=== PATIENT | female | born 1945 | race Caucasian/White ===

== ENCOUNTER 2017-05-20 09:16 | Day surgery (SDC) | payer MEDICARE ==
[~2017-05-20] VITALS: Ht 157.5 cm; Wt 65.9 kg
[~2017-05-20 09:16] MED LIST: CITA10TA4 PO; DICL50 PO; EZET10 PO; HYDR-3533 PO; LOVA10TA PO
[2017-05-20 09:32] VITALS: BP 125/83; PULSE 98; RESP 20; TEMP 97.9; O2SAT 95
[2017-05-20] MEDS ORDERED: LEVO50TA4 PO (09:38)
[2017-05-20] MEDS ORDERED: EZET1TAB8 PO (09:38)
[2017-05-20] MEDS ORDERED: CITA10TA4 PO (09:38)
[2017-05-20] MEDS ORDERED: AZEL0.055 EACH NARE (09:38)
[2017-05-20] MEDS ORDERED: LIDOCAINE 1%/EPINEPHrine 1:100,000 SOLN 20 ML VIAL ONE (09:45)
[2017-05-20] MEDS ORDERED: SODIUM CHLOR 0.9% 1000 ML IV SCH (10:30)
[2017-05-20] MEDS ORDERED: MIDAZOLAM HCL 2 MG/2 ML VIAL ONE (10:54)
--- NOTE | 2017-05-20 11:31 | PD.RAD ---
Post CT Procedure Prog Note Pre Procedure Diagnosis: (1) Abdominal mass Post Procedure Diagnosis: (1) Abdominal mass Procedure Date: May 20, 2017 Supervising Radiologist: Marco Rincon Anesthesia: Conscious Sedation Plan of Activity Patient to Unit: [facility] Patient Condition: Good See PACS Report for procedural detail/treatment Marco Rincon MD May 20, 2017 11:31
[2017-05-20 11:40] VITALS: BP 112/74; PULSE 78; RESP 18; TEMP 97.8; O2SAT 92
[2017-05-20 11:55] VITALS: BP 116/75; PULSE 81; RESP 18; O2SAT 92
[2017-05-20 12:25] VITALS: BP 110/78; PULSE 80; RESP 18; O2SAT 92
[2017-05-20 12:55] VITALS: BP 109/75; PULSE 87; RESP 18; O2SAT 93
[2017-05-20 13:19] VITALS: BP 113/71; PULSE 84; RESP 18; O2SAT 92
--- NOTE | 2017-05-20 14:39 | RADRPT ---
EXAM DATE/TIME: 05/20/2017 10:57 [facility] COMPARISON: No previous studies available for comparison. 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 Image data biopsy has been requested. An omental implant in the right anterior midabdomen will be targeted. SEDATION TIME: 30 minutes BIOPSY SITE: Left abdomen MEDICATION(S): 1.) 2 mg midazolam (Versed) IV 2.) 100 mcg fentanyl (Sublimaze) IV DEVICE(S): 1.) 18 gauge Bain blunt needle 5cm 2.) 20 gauge Temno core biopsy needle 11cm MEDICAL HISTORY : Carcinoma, breast. pelvic mass SURGICAL HISTORY : mastectomy ENCOUNTER: Initial ACUITY: 1 day PAIN SCORE: 0/10 LOCATION: Left lateral A total of four core specimen(s) were obtained and sent to the laboratory for pathologic evaluation. PROCEDURE: 1. CT guided abdomen biopsy. 2. Conscious sedation with continuous EKG and oximetry monitoring. Prior to the procedure informed consent was obtained. Any appropriate prior imaging studies were rev iewed. Using automated exposure control and adjustment of the mA and/or kV according to patient size, radiat ion dose was kept as low as reasonably achievable to obtain optimal diagnostic quality images. DICOM format image data is available electronically for review and comparison. The site was prepped in a sterile fashion. Full sterile technique was used, including cap, mask, roger rile gloves and gown and a large sterile sheet. Hand hygiene and 2% chlorhexidine and/or betadine/al cohol prep was utilized per protocol for cutaneous antisepsis. The skin and subcutaneous tissues wer e infiltrated with local anesthetic solution. CT examination was performed through the abdomen. This demonstrates interval development of small to moderate amount of ascites. The previous subcentimeter omental implant is now nearly completely obscu red and is adjacent to a loop of bowel precluding biopsy. Therefore, 2 small subcentimeter omental ma sses were targeted in the left abdomen. 18 gauge Bain needle was advanced into the periphery of th e omental masses under careful CT guidance utilizing the blunt stylet. 20 gauge core biopsies were th en performed with a total of 5 biopsy attempts. The omental masses are difficult to target secondary to significant mobility and lack of fixation in the omental adipose tissue. Approximately 15 cc of s traw-colored ascites fluid was also withdrawn through the second needle as it was retracted through t he tract. All samples were submitted for cytology and pathology. Adequate hemostasis was obtained wit h compression at the puncture site. Follow-up CT scan reveals no hemorrhage. The patient tolerated the procedure well and there were no complications. The patient was returned to the Radiology Outpatient Unit in stable condition. CONCLUSION: 1. Interval development of [id number] amount of ascites. 2. Challenging omental mass biopsy and limited paracentesis through the biopsy needle tract, as above . Marco Rincon MD on May 20, 2017 at 14:32 Board Certified Radiologist. This report was verified electronically.
== END 2017-05-20 13:30 | disposition home or self-care (01) ==
LOC: HRAD 09:16 → HRIP 09:17 → HRAD 13:30
PROVIDERS: ATTEND Obstetrics & Gynecology Gynecologic Oncology
DX: R19.00 Intra-abdominal and pelvic swelling, mass and lump, unspecified site (principal); R18.8 Other ascites; Z85.3 Personal history of malignant neoplasm of breast
CPT/HCPCS: 49180; 77012; 88305; 88341; 88342; 99152; 99153; J2250; J3010

== ENCOUNTER 2017-05-28 08:13 | Day surgery (SDC) | payer MEDICARE ==
[~2017-05-28 08:13] MED LIST changes: +AZEL0.055 EACH NARE; -DICL50 PO; -EZET10 PO; +EZET1TAB8 PO; -HYDR-3533 PO; +LEVO50TA4 PO; -LOVA10TA PO
[2017-05-28 08:38] VITALS: BP 125/73; PULSE 75; RESP 14; TEMP 98.8; O2SAT 96
[2017-05-28 09:35] VITALS: BP 119/66; PULSE 78; RESP 20; TEMP 97.5; O2SAT 97
[2017-05-28 09:50] VITALS: BP 122/71; PULSE 80; RESP 16; O2SAT 95
--- NOTE | 2017-05-28 11:05 | RADRPT ---
EXAM DATE/TIME: 05/28/2017 08:27 [facility] COMPARISON: No previous studies available for comparison. EXTERNAL COMPARISON: [facility], CT Abdomen and pelvis, Apr 28 2017. INDICATIONS : Ascites. MEDICAL HISTORY : Carcinoma, breast. Ovarian cancer. Hypothyroidism. SURGICAL HISTORY : Mastectomy, right. section. ENCOUNTER: Subsequent ACUITY: 1 day PAIN SCORE: 0/10 LOCATION: Left lower quadrant FLUID: Total volume of 3,800 cc of clear, yellow fluid was removed. Fluid was discarded. Paracentesis was therapeutic only. Post procedure scanning reveals no hematoma or other complication. TECHNIQUE: 1. Ultrasound guidance for abdominal paracentesis. 2. Paracentesis. The risks, benefits, and alternatives to ultrasound guided paracentesis were explained to the patient in detail including the risk of bleeding and infection. Written and verbal informed consent was obt ained. With the patient on the ultrasound table, ultrasound imaging was used to select the most appropriate approach for paracentesis. Overlying skin was prepped and draped in the usual sterile fashion and wi th a local anesthetic, a dermatotomy was made with an 11 blade scalpel. A 6 Afghan Tsu-A-zdtrmyai ca theter was introduced into the peritoneal cavity and fluid was collected. The patient tolerated the procedure well and left the ultrasound suite in stable condition. CONCLUSION: Uncomplicated ultrasound guided paracentesis. Pieter Rodríguez MD on May 28, 2017 at 11:03 Board Certified Radiologist. This report was verified electronically.
[2017-05-28] MEDS ORDERED: LIDOCAINE HCL 1% 20 ML VIAL ONE (11:45)
== END 2017-05-28 10:27 | disposition home or self-care (01) ==
LOC: HRAD 08:13 → HRIP 08:19 → HRAD 10:27
PROVIDERS: ATTEND Obstetrics & Gynecology Gynecologic Oncology
DX: R18.8 Other ascites (principal)
CPT/HCPCS: 49083; C1729

== ENCOUNTER 2017-05-29 08:17 | Day surgery (SDC) | payer MEDICARE ==
[~2017-05-29] VITALS: Ht 157.5 cm; Wt 65.9 kg
[2017-05-29] MEDS ORDERED: IOHEXOL 350 MG/ML 50 ML BTL (for RAD DIAG) OTHER ONE (08:18)
[2017-05-29 08:35] VITALS: BP 112/70; PULSE 79; RESP 20; TEMP 97.5; O2SAT 95
[2017-05-29] MEDS ORDERED: ceFAZolin 2 GM PREMIX 50 ML - implanted port/tunneled catheter insertion IV SCH (09:00)
[2017-05-29] MEDS ORDERED: SODIUM CHLORIDE 0.9% 1000 ML IV SCH (09:00)
[2017-05-29] MEDS ORDERED: CHLORHEXIDINE GLUCONATE 2 % 1 PACK (2 CLOTHS) TOPICAL SCH (09:00)
[2017-05-29] MEDS ORDERED: VANCOMYCIN 1000 MG/NS 250 ML - implanted port/tunneled catheter IV SCH ×2 (09:00)
[2017-05-29] MEDS ORDERED: POVIDONE IODINE 5% (ANTISEPSIS KIT) 4 APPLICATIONS EACH NARE SCH (09:00)
[2017-05-29] MEDS ORDERED: MIDAZOLAM HCL 5 MG/5 ML VIAL ONE (09:18)
[2017-05-29] MEDS ORDERED: LIDOCAINE 1%/EPINEPHrine 1:100,000 SOLN 20 ML VIAL ONE (09:54)
[2017-05-29 10:53] VITALS: BP 118/71; PULSE 96; RESP 18; TEMP 97.6; O2SAT 91
--- NOTE | 2017-05-29 10:54 | PD.RAD ---
Post Procedure Progress Note Pre Procedure Diagnosis: (1) Abdominal mass Post Procedure Diagnosis: (1) Abdominal mass Procedure Date: May 29, 2017 Supervising Radiologist: Mello Kerr Proceduralist/Assist: Víctor Cummings RT(R), Rosendo Samuel RT(R) Anesthesia: Conscious Sedation Plan of Activity Patient to Unit: [facility] Patient Condition: Good See PACS Report for procedural detail/treatment Central Venous Access Device Procedure 1 Right Internal Jugular Infusaport Placement single lumen Mello Kerr MD May 29, 2017 10:54
[2017-05-29] MEDS ORDERED: SODIUM CHLORIDE 0.9% FLUSH 10 ML FLUSH IVF PRN (11:00)
[2017-05-29 11:08] VITALS: BP 108/72; PULSE 87; RESP 17; O2SAT 91
[2017-05-29 11:38] VITALS: BP 123/72; PULSE 78; RESP 18; O2SAT 93
[2017-05-29 12:08] VITALS: BP 106/71; PULSE 76; RESP 17; O2SAT 93
--- NOTE | 2017-05-29 13:05 | RADRPT ---
EXAM DATE/TIME: 05/29/2017 10:46 [facility] COMPARISON: No previous studies available for comparison. INDICATIONS : Patient presents with ovarian cancer in need of in need of port placement for chemotherapy treatment. MEDICAL HISTORY : Breast cancer hx Ovarian cancer Colitis Leaky heart valve Migraine hx Thyroid Osteoarthritis SURGICAL HISTORY : Mastectomy ENCOUNTER: Initial ACUITY: 1 month PAIN SCORE: 3/10 LOCATION: LLQ FLUORO TIME: 3.5 minutes IMAGE SERIES: 4 SEDATION TIME: 60 minutes ACCESS: Right internal jugular vein SEDATION: 1.) 3 mg midazolam (Versed) IV 2.) 100 mcg fentanyl (Sublimaze) IV Prophylactic antibiotics were administered with appropriate pre-procedure timing. Vancomycin within 2 hours of procedure, Ancef (or alternative) within 1 hour of procedure. DEVICE: 1. 8 Afghan single lumen Smart port CT w/vortex PROCEDURE : 1. Continuous pulse oximetry and EKG monitoring. 2. Intravenous conscious sedation. 3. Ultrasound guidance for venous access. 4. Fluoroscopic guided implantable central venous port placement. The patient was placed supine. The neck was prepped in sterile fashion. Full sterile technique was u sed, including cap, mask, sterile gloves and gown, and a large sterile sheet. Hand hygiene and 2% ch lorhexidine Betadine was utilized per protocol for cutaneous antisepsis with appropriate dry time for site. Sterile gel and sterile probe cover were utilized for ultrasound guidance. The skin and sub cutaneous tissues were infiltrated with local anesthetic solution. Under direct ultrasound guidance, central venous access was accomplished in the targeted vessel. The ultrasound images depicting access guidance were stored and saved to PACS for permanent record. A s ubcutaneous pocket was created using blunt dissection. The port was introduced to the pocket. The c atheter tubing was fed through a subcutaneous tunnel to the venotomy site. The catheter tubing was c ut to a suitable length and then was introduced through a valved Peel-Away sheath and positioned with catheter tubing tip at the cavo-atrial junction level. The pocket incision was closed with subcutic ular Vicryl suture. Steri-Strips were applied. The port was flushed and locked with heparin solutio n per protocol. Sterile dressing was applied to the site. The patient tolerated the procedure well. Conscious sedation was performed with the prescribed dosages and duration as above in the presence of an independent trained radiology nurse to assist in the monitoring of the patient. EKG and oximetry remained stable throughout the procedure. The patient tolerated the procedure well and there were no complications. The patient was sent to post anesthesia recovery in stable condition. CONCLUSION: Uncomplicated ultrasound and fluoroscopic guided implanted central venous port catheter placement as described in detail above. An 8 Afghan Power port was placed. Mello Kerr MD on May 29, 2017 at 13:04 Board Certified Radiologist. This report was verified electronically.
== END 2017-05-29 13:00 | disposition home or self-care (01) ==
LOC: HROP 08:17 → HRIP 08:20 → HROP 13:00
PROVIDERS: ATTEND Obstetrics & Gynecology Gynecologic Oncology
DX: Z45.2 Encounter for adjustment and management of vascular access device (principal); C56.9 Malignant neoplasm of unspecified ovary; M19.90 Unspecified osteoarthritis, unspecified site
CPT/HCPCS: 36561; 76937; 77001; 99152; 99153; C1769; C1788; J0690; J1642; J2250; J3010; J3370; J7030; J7050; Q9967

== ENCOUNTER 2017-06-10 07:58 | Day surgery (SDC) | payer MEDICARE ==
[2017-06-10 08:53] VITALS: BP 120/75; PULSE 93; RESP 16; TEMP 97.2; O2SAT 96
[2017-06-10] MEDS ORDERED: LIDOCAINE HCL 1% 20 ML VIAL ONE (10:13)
[2017-06-10 10:15] VITALS: BP 128/55; PULSE 74; RESP 20; O2SAT 94
[2017-06-10 10:30] VITALS: BP 120/55; PULSE 85; RESP 20; O2SAT 94
--- NOTE | 2017-06-10 10:45 | RADRPT ---
EXAM DATE/TIME: 06/10/2017 08:33 [facility] COMPARISON: EXTERNAL COMPARISON: US GUIDED ABD PARACENTESIS, May 28, 2017, 8:27. [facility], CT ABDOMEN & PELVIS W & W/O CONTRAST, Apr 28 2017. INDICATIONS : Ascites. MEDICAL HISTORY : Carcinoma, breast. Hypothyroidism. Osteoarthritis. Ovarian cancer. Colitis. Leaky heart valve. Migrai george. Ascites. SURGICAL HISTORY : Mastectomy, right. section. Breast biopsy. Paracentesis. ENCOUNTER: Subsequent ACUITY: 2 weeks PAIN SCORE: 3/10 LOCATION: Right lower quadrant FLUID: Total volume of 4,400 cc of clear, alan fluid was removed. Fluid was discarded. Paracentesis was therapeutic only. Post procedure scanning reveals no hematoma or other complication. TECHNIQUE: 1. Ultrasound guidance for abdominal paracentesis. 2. Paracentesis. The risks, benefits, and alternatives to ultrasound guided paracentesis were explained to the patient in detail including the risk of bleeding and infection. Written and verbal informed consent was obt ained. With the patient on the ultrasound table, ultrasound imaging was used to select the most appropriate approach for paracentesis. Overlying skin was prepped and draped in the usual sterile fashion and wi th a local anesthetic, a dermatotomy was made with an 11 blade scalpel. A 6 Latvian Urg-I-kabrkivu ca theter was introduced into the peritoneal cavity and fluid was collected. The patient tolerated the procedure well and left the ultrasound suite in stable condition. CONCLUSION: Uncomplicated ultrasound guided paracentesis. Marco Rincon MD on June 10, 2017 at 10:43 Board Certified Radiologist. This report was verified electronically.
== END 2017-06-10 10:50 | disposition home or self-care (01) ==
LOC: HRAD 07:58 → HRIP 08:23 → HRAD 10:50
PROVIDERS: ATTEND Obstetrics & Gynecology Gynecologic Oncology
DX: R18.8 Other ascites (principal); Z85.3 Personal history of malignant neoplasm of breast; E03.9 Hypothyroidism, unspecified; Z85.43 Personal history of malignant neoplasm of ovary
CPT/HCPCS: 49083; C1729

== ENCOUNTER 2017-06-24 09:38 | Day surgery (SDC) | payer MEDICARE ==
[2017-06-24 10:24] VITALS: BP 107/67; PULSE 105; RESP 14; TEMP 98.1; O2SAT 96
[2017-06-24 11:30] VITALS: BP 111/69; PULSE 94; RESP 18; TEMP 98; O2SAT 96
[2017-06-24 11:45] VITALS: BP 104/69; PULSE 99; RESP 18; O2SAT 97
--- NOTE | 2017-06-24 13:26 | RADRPT ---
EXAM DATE/TIME: 06/24/2017 10:17 [facility] COMPARISON: EXTERNAL COMPARISON: US GUIDED ABD PARACENTESIS, June 10, 2017, 8:33. [facility], CT ABDOMEN & PELVIS W & W/O CONTRAST, Apr 28 2017. INDICATIONS : Ascites. MEDICAL HISTORY : Carcinoma, breast. Hypothyroidism. Osteoarthritis. Ovarian cancer. Colitis. Leaky heart valve. Migrai george. Ascites. SURGICAL HISTORY : Mastectomy, right. section. Breast biopsy. Paracentesis. ENCOUNTER: Subsequent ACUITY: 2 weeks PAIN SCORE: 0/10 LOCATION: Right lower quadrant FLUID: Total volume of 3,200 cc of bloody ascites was removed. Fluid was discarded. Paracentesis was therapeutic only. Post procedure scanning reveals no hematoma or other complication. TECHNIQUE: 1. Ultrasound guidance for abdominal paracentesis. 2. Paracentesis. The risks, benefits, and alternatives to ultrasound guided paracentesis were explained to the patient in detail including the risk of bleeding and infection. Written and verbal informed consent was obt ained. With the patient on the ultrasound table, ultrasound imaging was used to select the most appropriate approach for paracentesis. Overlying skin was prepped and draped in the usual sterile fashion and wi th a local anesthetic, a dermatotomy was made with an 11 blade scalpel. A 6 Yi Gsi-W-zdzuctdj ca theter was introduced into the peritoneal cavity and fluid was collected. The patient tolerated the procedure well and left the ultrasound suite in stable condition. CONCLUSION: Uncomplicated ultrasound guided paracentesis yielding 3,200 cc's of bloody ascites. Kiran Tolbert MD on June 24, 2017 at 13:23 Board Certified Radiologist. This report was verified electronically.
== END 2017-06-24 11:49 | disposition home or self-care (01) ==
LOC: HRAD 09:38 → HRIP 09:41 → HRAD 11:49
PROVIDERS: ATTEND Obstetrics & Gynecology Gynecologic Oncology
DX: R18.8 Other ascites (principal); Z85.3 Personal history of malignant neoplasm of breast; E03.9 Hypothyroidism, unspecified; M19.90 Unspecified osteoarthritis, unspecified site; Z85.43 Personal history of malignant neoplasm of ovary; I38 Endocarditis, valve unspecified; G43.909 Migraine, unspecified, not intractable, without status migrainosus
CPT/HCPCS: 49083; C1729

== ENCOUNTER 2017-10-02 05:21 | Inpatient (IN) | payer MEDICARE ==
[2017-10-02] VITALS (7 sets, daily range): BP systolic 112; BP diastolic 73; PULSE 52–66; TEMP 97.1; O2SAT 97
[~2017-10-02] VITALS: Ht 154.9 cm; Wt 57.0 kg
[~2017-10-02 05:21] MED LIST changes: +FLUT1SPR5 EACH NARE
[2017-10-02] MEDS ORDERED: SODIUM CHLORIDE FLUSH PRN IV FLUSH (05:45)
[2017-10-02] MEDS ORDERED: CHLORHEXIDINE GLUCONATE 2 % 1 PACK (2 CLOTHS) TOPICAL PRN (05:45)
[2017-10-02] MEDS ORDERED: ceFAZolin 1,000 MG/NS 100 ML IV SCH ×2 (05:45)
[2017-10-02] MEDS ORDERED: HEPARIN SODIUM - SQ 10,000 UNITS/ML VIAL SQ PRN (05:45)
[2017-10-02] MEDS ORDERED: POVIDONE IODINE 5% (ANTISEPSIS KIT) 4 APPLICATIONS EACH NARE PRN (05:45)
[2017-10-02] MEDS ORDERED: SODIUM CHLORID 0.9% 500 ML IV PRN (05:45)
[2017-10-02] MEDS ORDERED: LACTATED RINGER'S 1000 ML IV PRN (05:45)
[2017-10-02] MEDS ORDERED: METOPROLOL TARTRATE 25 MG TAB PO PRN (05:45)
[2017-10-02] MEDS ORDERED: ACETAMINOPHEN 1000 MG/100 ML 100 ML IV ONE (08:20)
[2017-10-02] MEDS ORDERED: ROCURONIUM INJ 50 MG/5 ML SYRINGE IV PUSH ONE (12:00)
[2017-10-02] MEDS ORDERED: LIDOCAINE HCL 1% PF 5 ML SYRINGE OTHER ONE (12:00)
[2017-10-02] MEDS ORDERED: PROPOFOL 200 MG/20 ML AMP IV ONE (12:00)
[2017-10-02] MEDS ORDERED: GLYCOPYRROLATE 1 MG/5 ML SYRINGE IV PUSH ONE (12:00)
[2017-10-02] MEDS ORDERED: ceFAZolin INJ 1,000 MG VIAL IV ONE ×2 (12:00→13:06)
[2017-10-02] MEDS ORDERED: DEXAMETHASONE SOD PHOS 4 MG/ML VIAL IV ONE (12:00)
[2017-10-02] MEDS ORDERED: NORMOSOL R INJ 2,000 ML IV ONE (12:00)
[2017-10-02] MEDS ORDERED: ONDANSETRON HCL 4 MG/2 ML VIAL IV ONE (12:00)
[2017-10-02] MEDS ORDERED: LACTATED RINGER'S 1000 ML INJ 2,000 ML IV ONE (12:00)
[2017-10-02] MEDS ORDERED: NEOSTIGMINE 5 MG/5 ML SYRINGE IV PUSH ONE (12:00)
[2017-10-02] MEDS ORDERED: SODIUM CHLORIDE 0.9% 10 ML VIAL IV ONE (12:00)
[2017-10-02] MEDS ORDERED: LIDOCAINE 1%/EPINEPHrine 1:100,000 SOLN 50 ML VIAL INFIL ONE (12:04)
[2017-10-02] MEDS ORDERED: DO NOT ADM ANY ANTICOAGULANT DRUGS PRN (13:26)
[2017-10-02] MEDS ORDERED: ONDANSETRON HCL 4 MG/2 ML VIAL IVP PRN (13:30)
[2017-10-02] MEDS ORDERED: SODIUM CHLORIDE 0.9% FLUSH 10 ML FLUSH IV FLUSH PRN (13:30)
[2017-10-02] MEDS ORDERED: diphenhydrAMINE HCL 25 MG CAP PO PRN (13:30)
[2017-10-02] MEDS ORDERED: LORazepam 0.5 MG TAB PO PRN (13:30)
[2017-10-02] MEDS ORDERED: MIDAZOLAM HCL 2 MG/2 ML VIAL ONE (13:32)
[2017-10-02] MEDS ORDERED: MORPHINE SULFATE 4 MG/ML INJ ONE (13:32)
[2017-10-02] MEDS ORDERED: traMADol HCL 50 MG TAB PO PRN (13:45)
[2017-10-02] MEDS: D5-1/2 NS + KCL 20 MEQ INJ 1,000 ML IV SCH ×2 (13:51→22:29)
[2017-10-02] MEDS: KETOROLAC TROMETHAMINE 30 MG/ML (IVP) VIAL IVP SCH ×2 (13:51→20:39)
[2017-10-02] MEDS ORDERED: PILL SPLITTER OTHER PRN (14:00)
[2017-10-02] MEDS: SODIUM CHLORIDE FLUSH BID IV FLUSH SCH ×2 (14:36→20:49)
[2017-10-02] MEDS ORDERED: *MEPERIDINE 25 MG INJ VIAL PERIprocedural Use ONLY ONE (15:16)
[2017-10-02] MEDS: FLUTICASONE PROPIONATE 50 MCG/ACT 16 GM NASAL SPRAY EACH NARE SCH (20:40)
[2017-10-02] MEDS ORDERED: SODIUM CHLORIDE 0.9% FLUSH 10 ML FLUSH IV FLUSH SCH (21:00)
[2017-10-03] VITALS (9 sets, daily range): BP systolic 91–101; BP diastolic 54–71; PULSE 52–78; RESP 18; TEMP 97.5–98.8; O2SAT 99–100
[2017-10-03] MEDS: KETOROLAC TROMETHAMINE 30 MG/ML (IVP) VIAL IVP SCH ×2 (01:00→11:38)
[2017-10-03] MEDS ORDERED: LEVOTHYROXINE SODIUM 50 MCG TAB PO SCH (06:00)
[2017-10-03 07:15] LABS: AUTOMATED NEUTROPHIL # 4.8 TH/MM3 (1.8-7.7); BASOPHIL % 0.3 % (0.0-2.0); EOSINOPHIL % 0.2 % (0.0-4.0); HEMATOCRIT 27.9 % (35.0-46.0); HEMOGLOBIN 9.5 GM/DL (11.6-15.3); LYMPH % 20.8 % (9.0-44.0); LYMPHOCYTE # 1.5 TH/MM3 (1.0-4.8); MEAN CELL VOLUME 98.5 FL (80.0-100.0); MEAN CORPUSCULAR HEMOGLOBIN 33.6 PG (27.0-34.0); MEAN CORPUSCULAR HGB CONC 34.1 % (32.0-36.0); MEAN PLATELET VOLUME 8.4 FL (7.0-11.0); MONO % 11.2 % (0.0-8.0); MONOCYTE # 0.8 TH/MM3 (0-0.9); NEUT % 67.5 % (16.0-70.0); PLATELET COUNT 208 TH/MM3 (150-450); RED BLOOD COUNT 2.83 MIL/MM3 (4.00-5.30); RED CELL DISTRIBUTION WIDTH 17.3 % (11.6-17.2); WHITE BLOOD COUNT 7.1 TH/MM3 (4.0-11.0)
[2017-10-03 07:36] LABS: BICARBONATE 26.7 MEQ/L (21.0-32.0); CALCIUM 8.1 MG/DL (8.5-10.1); CREATININE 0.77 MG/DL (0.50-1.00)
[2017-10-03] MEDS ORDERED: TRAM50 PO (07:48)
--- NOTE | 2017-10-03 07:50 | PD.PN.STU ---
Subjective Remarks 72F POD#2 s/p robotic assisted laparoscopic omentectomy and lysis of adhesions. Pt seen in bed this morning. Reports feeling well, but complaining of mild pain and soreness in the abdominal area. Pt attempted to get up from bed this morning but felt "wobbly". Pt desires to go home but amenable to staying in the hospital if needed. She resides at an assisted living facility, [facility], and reports 24hr care and assistance is available to her. Denies loss of consciousness, falls, or dizziness. Denies SMILEY, CP, SOB, dyspnea, nausea/ vomiting, fever, chills, leg pain. Yarbrough removed this AM, voided once with assistance. Objective Vitals Vital Signs Date Time Temp Pulse Resp B/P (MAP) Pulse Ox O2 Delivery O2 Flow Rate FiO2 10/03/17 06:00 52 10/03/17 05:10 97.5 57 18 91/54 (66) 99 10/03/17 05:00 56 10/03/17 04:00 53 10/03/17 02:00 54 10/03/17 01:00 78 10/03/17 00:55 97.6 61 101/58 (72) 100 10/03/17 00:00 64 10/02/17 23:00 52 10/02/17 22:00 54 10/02/17 21:00 52 10/02/17 20:34 97.1 62 112/73 (86) 97 10/02/17 20:00 52 10/02/17 19:00 66 10/02/17 18:00 52 10/02/17 16:50 98.2 58 17 101/56 (71) 96 Nasal Cannula 2 10/02/17 16:00 62 16 91/50 (64) 97 Nasal Cannula 2 10/02/17 15:00 59 14 108/58 (75) 98 Nasal Cannula 2 10/02/17 14:30 55 18 114/87 (96) 94 Nasal Cannula 2 10/02/17 14:15 62 12 108/61 (77) 95 Nasal Cannula 2 10/02/17 14:00 60 14 112/61 (78) 95 Nasal Cannula 2 10/02/17 13:45 62 13 114/71 (85) 95 Nasal Cannula 2 10/02/17 13:30 70 15 123/78 (93) 93 Nasal Cannula 2 10/02/17 13:24 97.7 85 20 140/78 (98) 92 Nasal Cannula 4 I/O 10/02/17 10/02/17 10/02/17 10/03/17 10/03/17 10/03/17 07:00 15:00 23:00 07:00 15:00 23:00 Intake Total 3800 ml 300 ml 480 ml Output Total 300 ml 400 ml 700 ml Balance 3500 ml -100 ml -220 ml Intake Oral 480 ml IV Total 3800 ml 300 ml Output Urine Total 400 ml 700 ml Estimated Blood Loss 300 ml Result Diagram: 10/03/17 0555 10/03/17 0558 Other Results Laboratory Tests Test 10/03/17 05:55 10/03/17 05:58 Red Blood Count 2.83 MIL/MM3 (4.00-5.30) Hemoglobin 9.5 GM/DL (11.6-15.3) Hematocrit 27.9 % (35.0-46.0) Red Cell Distribution Width 17.3 % (11.6-17.2) Monocytes (%) (Auto) 11.2 % (0.0-8.0) Random Glucose 136 MG/DL (74-106) Calcium Level 8.1 MG/DL (8.5-10.1) Estimat Glomerular Filtration Rate 74 ML/MIN (>89) Vital Signs Date Time Temp Pulse Resp B/P (MAP) Pulse Ox O2 Delivery O2 Flow Rate FiO2 10/03/17 06:00 52 10/03/17 05:10 97.5 57 18 91/54 (66) 99 10/03/17 05:00 56 10/03/17 04:00 53 10/03/17 02:00 54 10/03/17 01:00 78 10/03/17 00:55 97.6 61 101/58 (72) 100 10/03/17 00:00 64 10/02/17 23:00 52 10/02/17 22:00 54 10/02/17 21:00 52 10/02/17 20:34 97.1 62 112/73 (86) 97 10/02/17 20:00 52 10/02/17 19:00 66 10/02/17 18:00 52 10/02/17 16:50 98.2 58 17 101/56 (71) 96 Nasal Cannula 2 10/02/17 16:00 62 16 91/50 (64) 97 Nasal Cannula 2 10/02/17 15:00 59 14 108/58 (75) 98 Nasal Cannula 2 10/02/17 14:30 55 18 114/87 (96) 94 Nasal Cannula 2 10/02/17 14:15 62 12 108/61 (77) 95 Nasal Cannula 2 10/02/17 14:00 60 14 112/61 (78) 95 Nasal Cannula 2 10/02/17 13:45 62 13 114/71 (85) 95 Nasal Cannula 2 10/02/17 13:30 70 15 123/78 (93) 93 Nasal Cannula 2 10/02/17 13:24 97.7 85 20 140/78 (98) 92 Nasal Cannula 4 Objective Remarks GENERAL: WDWN pleasant female who was in NAD SKIN: generalized pallor. HEAD: Normocephalic. EYES: No scleral icterus. No injection or drainage. CARDIOVASCULAR: Regular rate and rhythm without murmurs, gallops, or rubs. RESPIRATORY: Breath sounds equal bilaterally. No accessory muscle use. GASTROINTESTINAL: BS heard in all quadrants. Abdomen soft, nondistended, mildly tender to palpation. 5 laparoscopic sutures with bandages noted in the upper abdomen. Wound sites appear clean, no drainage, skin around area mildly erythematous MUSCULOSKELETAL: No cyanosis, or edema. Able to move all 4 extremities. Negative Latisha's sign. Procedures POD#2 s/p robotic assisted laparoscopic omentectomy and lysis of adhesions Medications and IVs Current Medications Medications (Trade) Dose Ordered Sig/Michael Route Start Time Stop Time Status Last Admin Lactated Ringer's 1,000 ml @ 30 mls/hr Q24H PRN IV 10/02/17 05:45 10/05/17 05:44 10/02/17 06:00 Sodium Chloride 500 ml @ 30 mls/hr [id number] PRN IV 10/02/17 05:45 10/05/17 05:44 (Lopressor) 25 mg MANAGER MORTGAGE PRN PO 10/02/17 05:45 10/05/17 05:44 (Betadine 5% Antisepsis Kit) 1 applic MANAGER MORTGAGE PRN EACH NARE 10/02/17 05:45 10/05/17 05:44 10/02/17 06:05 (Chlorhexidine 2% Cloth) 3 pack MANAGER MORTGAGE PRN TOPICAL 10/02/17 05:45 10/05/17 05:44 10/02/17 05:30 Cefazolin Sodium 1000 mg/Sodium Chloride 100 ml @ 200 mls/hr MANAGER MORTGAGE IV 10/02/17 05:45 10/05/17 05:44 10/02/17 08:01 (NS Flush) 2 ml BID IV FLUSH 10/02/17 09:00 10/02/17 20:49 (NS Flush) 2 ml UNSCH PRN IV FLUSH 10/02/17 05:45 (CeleXA) 10 mg DAILY PO 10/03/17 09:00 (Zetia) 10 mg DAILY PO 10/03/17 09:00 (Synthroid) 50 mcg DAILY@0600 PO 10/03/17 06:00 10/03/17 05:15 Patient Own Medication PT OWN MED: [facility]AST... DAILY NASAL 10/03/17 09:00 Future Hold (Flonase Agustin Spr) 1 spray BID EACH NARE 10/02/17 21:00 10/02/17 20:40 Potassium Chloride/Dextrose/ Sod Cl 1,000 ml @ 100 mls/hr Q10H IV 10/02/17 14:00 10/02/17 22:29 (Toradol Inj) 15 mg Q6H IVP 10/02/17 14:00 10/03/17 08:01 10/03/17 01:00 (Benadryl) 25 mg Q6H PRN PO 10/02/17 13:30 (Zofran Inj) 4 mg Q6H PRN IVP 10/02/17 13:30 (Ativan) 0.25 mg Q8H PRN PO 10/02/17 13:30 (Ultram) 50 mg Q4H PRN PO 10/02/17 13:45 10/03/17 14:00 (Pill Splitter) 1 ea UNSCH PRN OTHER 10/02/17 14:00 Miscellaneous Information ALL NURSING DEPARTME... UNSCH PRN .XX 10/02/17 13:26 10/03/17 13:25 A/P Assessment and Plan 1. 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 Hypotension cont IVF monitor vitals 3. Anemia- poss secondary to surgical blood loss monitor labs, transfuse if HB falls below 7 Ng,Emma M3 Oct 03, 2017 07:50
--- NOTE | 2017-10-03 08:10 | MD ---
cc: Kristi Mahoney MD, Ted E MD, FABRIC DESIGNER Rafi Rust DO DATE OF DISCHARGE: 10/03/2017 PROCEDURE: 10/02/2017, laparoscopy with extensive lysis of adhesions, robotic-assisted laparoscopic omentectomy with resection of tumor and lysis of adhesions. DIAGNOSIS: Primary peritoneal carcinoma. HOSPITAL COURSE: She did well in the early postop period. She remained hemodynamically stable, tolerating oral intake. Kelsey catheter removed, pending voiding. Ins and outs 4580/1400. Labs show an H and H of 9.5 and 27.9. Electrolytes: Show a potassium of 5.0, BUN and creatinine 8 and 0.77. PHYSICAL EXAM: VITAL SIGNS: Afebrile, pulse from 52-78, blood pressure 91 to 112/54 to 73, O2 saturations greater than or equal to 97%. GENERAL: Alert and oriented x 3 in no acute distress. LUNGS: Clear. Mild basilar rales. CARDIOVASCULAR: Regular rate and rhythm. ABDOMEN: Soft. Incisions clean and dry. HEAD CONCIERGE: Minimal serosanguineous drainage. EXTREMITIES: Nontender. ASSESSMENT: Postoperative day #1. Findings at the time of surgery, steps were taken, explanation of the value of ongoing chemotherapy and the likelihood of primary peritoneal cancer (as post ovarian cancer) were discussed preliminarily and will be discussed in further detail when she follows up in the office. Activities and restrictions reviewed. Questions were asked and answered. She expressed a good understanding. PLAN: Anticipate she will meet criteria for discharge to home today. She is to resume prior medications. She will have a prescription for tramadol for pain or she can take lral-tbc-rgwavre medications as needed instead. She is to contact our office to ensure she has a followup in 2 weeks or call our office sooner should she have any questions or problems. She expresses good understanding. Kristi Mahoney MD KLM/LILY , 07:53 AM , 08:10 AM
[2017-10-03] MEDS ORDERED: EZETIMIBE 10 MG TAB PO SCH (09:00)
[2017-10-03] MEDS ORDERED: AZELASTINE 0.15% NASAL SCH (09:00)
[2017-10-03] MEDS ORDERED: CITALOPRAM HYDROBROMIDE 20 MG TAB PO SCH (09:00)
--- NOTE | 2017-10-03 09:10 | MP ---
cc: Kristi Mahoney MD, Ted MD O'Donnell, Erica L DO DATE OF OPERATION: 10/02/2017 DATE OF PROCEDURE: 10/02/2017 PREOPERATIVE DIAGNOSES: 1. 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 2. Status post neoadjuvant Taxol and carboplatin chemotherapy. POSTOPERATIVE DIAGNOSES: 1. Intraperitoneal carcinomatosis of primary peritoneal origin. 2. Status post neoadjuvant Taxol and carboplatin chemotherapy. 3. Extensive intraperitoneal adhesions. PROCEDURE PERFORMED: Laparoscopy with extensive lysis of adhesions, robotic-assisted laparoscopic resection of omentum and intraperitoneal tumor, extensive lysis of adhesions. SURGEON: Kristi Mahoney MD JOINERY MACHINIST: Rodney office administrative assistant. ANESTHESIA: General endotracheal anesthesia. ESTIMATED BLOOD LOSS: 300 mL. IV FLUIDS: 3800 mL. URINE OUTPUT: 550 mL. 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 Also included was a pelvic mass somewhat ill-defined, largely omental tumor. She was counseled regarding these findings, started on neoadjuvant Taxol and carboplatin chemotherapy. Early on in her treatment. she required several therapeutic paracenteses where several liters of bloody ascites were removed, but with ongoing treatment, her CA-125 decreased substantially, her ascites resolved, she felt better and her clinical exam improved. She has been counseled regarding the potential value of interval cytoreductive surgery and presents now for that endeavor. She is seen in the preop holding area where findings and plan of care are again reviewed, and emphasized again are the recommendations for ongoing chemotherapy after surgery. She expresses good understanding and agrees to move forward. FINDINGS: In the peritoneal cavity, there are extensive adhesions of the omentum still with grossly visible tumor. It is densely adherent to the anterior abdominal wall. There are multiple bands of adhesions throughout the abdomen and pelvis, loops of small bowel, many stuck one to the other, and the small bowel appears to be somewhat chronically dilated throughout without overt evidence of focal obstruction. Essentially every visceral and parietal peritoneal surface has tumor implants and in addition to the tumor implants ranging from 1-10 mm, there are a couple areas with plaques of tumor in the mesentery above the root of the small bowel mesentery. Multiple loops are fixed one to the other with a plaque of tumor in that mesentery. Down in the pelvis, there are multiple loops of dilated small bowel fixed in the pelvis whereas there are filmy adhesions and mildly dense adhesions in the periphery, the central mass small bowel has tumor in the mesentery and it is likely that this mass as what was initially seen potentially on CAT scan as the pelvic mass. The tubes and ovaries grossly appear normal. The uterus grossly appears normal, although the uterus has some adhesion to the anterior abdominal wall, but there is no significant tumor burden seemingly arising from or involving the tubes, ovaries or uterus. At the conclusion of the case, a single large burden of tumor from the omentum had been satisfactorily resected, but there remained carcinomatous implants throughout the abdomen and pelvis on mesentery, bowel, liver, diaphragm, essentially all structures that were not amenable to surgical resection, but to be best addressed with chemotherapy. As it was difficult to access to the pelvis due to the fixed multiple dilated loops of bowel, combined with the normal appearance of the tubes, ovaries and uterus, with an overall finding suggestive of primary peritoneal cancer, it was felt the morbidity to try to resect the adnexa and/or uterus would exceed benefit based on the aforementioned findings. MODIFIER: There were extensive intraperitoneal adhesions and it is estimated at between 1-1/2 to 2 hours of total operative time was spent lysing adhesions, either to gain access to the peritoneal cavity to alleviate potential impending small-bowel obstruction to try to gain better exposure and to assist in tumor resection, modifier to be applied accordingly. DESCRIPTION OF PROCEDURE: She was taken to the operating room and placed in dorsal lithotomy position, after general endotracheal anesthesia was administered. Timeout was undertaken. She was identified by site recognition and hospital ID bracelet and the proposed procedure was reviewed and confirmed. She was carefully positioned in padded Travon stirrups. Her arms were padded and secured to the side. She was further secured to the operating table with egg crate padding and tape in a cross chest over the shoulder fashion. All sites noted to be properly aligned with no malalignment or pressure points. She was prepped and draped in sterile fashion, placed in lithotomy position. The cervix grasped, stenotic cervix opened with lacrimal probe and dilated and a small VCare manipulator was inserted. Even this was difficult due to her markedly stenotic postmenopausal changes to the vagina and cervix, but a small VCare was able to be put in place. Kelsey catheter placed in the bladder. She was returned to low lithotomy position. Change of sterile gloves was undertaken. We confirmed that an orogastric tube was in the stomach on suction. With manual elevation of the abdominal wall and direct laparoscopic visualization, a 5 mm cannula was placed in the left upper quadrant. Atraumatic entry was confirmed as carbon dioxide gas was infiltrated. There was no safe entry in the mid or right abdomen due to the extensive adhesions as described above and so cannula was placed in the left lateral abdomen and using these 2 access ports with blunt and sharp dissection, the adhesions were taken down. The omentum was released from its fixation to the anterior abdominal wall as well as filmy adhesions were taken down in the mid abdomen and to the right upper abdomen until safe access could be gained in these locations. A 12 mm cannula placed in the midline above the umbilicus, 8 mm cannula placed in the right upper quadrant and the original 5 changed for an 8 mm cannula. She was placed in Trendelenburg position. Additional lysis of adhesions were carried out. The anatomy was surveyed with findings as described above. Some biopsies were taken from the peritoneum overlying the diaphragm and other biopsies were taken throughout the peritoneum during the course of the surgery. The tissue was collected to be sent for analysis and assay testing. Three Ray-Madeline sponges were placed around the root of the small bowel mesentery and the robotic system was brought into the operative field, attached in the usual fashion. Monopolar scissors, fenestrated bipolar forceps and ProGrasp manipulators were placed in arms number 1, 2 and 3 respectively and I took my place at the surgeon's console. Additional lysis of adhesions were carried out. Efforts were made to try to gain access to the pelvis were obscured due to dilated fixed loops of bowel as described above, and adhesions were taken down, which provided some mobility to the bowel to allow visibility of the pelvic structures, although not safe for direct surgical access, and given that the tubes, ovaries and uterus grossly appeared normal, did not appear to be the source of the tumor, combined with the extensive tumor elsewhere, it was felt that this most likely represents primary peritoneal tumor. It is felt the morbidity attempting to resect the pelvic organs would exceed potential benefit. Attention was directed toward the abdomen. The omentum was isolated. A space was detected between the transverse colon and the mid omentum tumor free and the nonvascular space was opened with sharp dissection and vascular attachments were taken down with bipolar cautery and sharp dissection. This dissection was continued from the mid transverse colon towards the hepatic flexure in similar fashion, isolating and cauterizing the vascular attachments, which were transected and then sharp dissection to remove the peritoneal attachments. Attention was then focused toward the left as the omentum was resected off the transverse colon toward the splenic flexure in similar fashion stepwise until the infracolic omentum with tumor had been detached. Additional biopsies were taken, excising the peritoneal implants and this tissue was removed and collected for pathologic evaluation and assay testing. It was felt that all reasonable surgical objectives in this individual had been completed, so the robotic instruments were removed. The robotic system was disengaged from the operative field. I reentered the bedside under sterile condition. Each of the 3 Ray-Madeline sponges that had been placed in the peritoneal cavity were removed. They were removed individually and inspected and noted to be removed in their entirety. A 15 cm EndoCatch bag was introduced. The omentum with tumor was captured, brought to the abdominal wall within the EndoCatch bag and it was delivered through the 12 mm cannula with ring forceps until the entire omentum was removed. The pelvis and abdomen were thoroughly irrigated and hemostatic Nic powder was placed in the pelvis. All sites were satisfactorily hemostatic, although there was generalized mild oozing throughout, even prior to any surgical dissection, there was some small amount of bloody ascites in the cul-de-sac, but there was no active bleeding, no remaining foreign objects in the peritoneal cavity and preliminary counts were correct. She was returned to dorsal supine position. The 12 mm cannula was removed. The fascial defect was closed with 0 Vicryl sutures using the fascia closure needle pass apparatus. They were tied securely which rendered the fascia completely airtight and hemostatic. The remainder of the cannulas were withdrawn, carbon dioxide gas was removed from the peritoneal cavity, and 3-0 Vicryl subcutaneous and 3-0 Vicryl subcuticular was used to close these incisions followed by Steri-Strips. She was returned to dorsal lithotomy position. A VCare manipulator was removed from the uterus and cervix. There were bilateral vaginal sidewall lacerations, which required suturing as they were not hemostatic and 2-0 Vicryl running closure was carried out first along the right upper vaginal sidewall and then the left upper vaginal sidewall tied securely. This reapproximated the mucosa and submucosa and the sites were now hemostatic. To assist in continued hemostasis, hemostatic Surgicel SNoW was placed at the vaginal apex. Preliminary and final counts were correct. She was returned to dorsal supine position and was pending reversal of anesthesia and left the operating room to precede her to the Postanesthesia Care Unit. MD CHINO Milan/GIUSEPPE , 08:08 AM , 09:09 AM
[2017-10-03] MEDS: SODIUM CHLORIDE FLUSH BID IV FLUSH SCH (11:36)
[2017-10-03] MEDS: FLUTICASONE PROPIONATE 50 MCG/ACT 16 GM NASAL SPRAY EACH NARE SCH (11:36)
== END 2017-10-03 14:51 | disposition home or self-care (01) | DRG 330 ==
LOC: HSDI 05:21 → HCIN 16:55
PROVIDERS: ADMIT Obstetrics & Gynecology Gynecologic Oncology; ATTEND Obstetrics & Gynecology Gynecologic Oncology
PROC: 0UQG4ZZ Repair Vagina, Percutaneous Endoscopic Approach (ICD-10-PCS; 2017-10-02)
PROC: 0DN84ZZ Release Small Intestine, Percutaneous Endoscopic Approach (ICD-10-PCS; 2017-10-02)
PROC: 0DNE4ZZ Release Large Intestine, Percutaneous Endoscopic Approach (ICD-10-PCS; 2017-10-02)
PROC: 0DNW4ZZ Release Peritoneum, Percutaneous Endoscopic Approach (ICD-10-PCS; 2017-10-02)
PROC: 8E0W4CZ Robotic Assisted Procedure of Trunk Region, Percutaneous Endoscopic Approach (ICD-10-PCS; 2017-10-02)
PROC: 0DBW4ZX Excision of Peritoneum, Percutaneous Endoscopic Approach, Diagnostic (ICD-10-PCS; 2017-10-02)
PROC: 0T9B70Z Drainage of Bladder with Drainage Device, Via Natural or Artificial Opening (ICD-10-PCS; 2017-10-02)
PROC: 0DBU4ZZ Excision of Omentum, Percutaneous Endoscopic Approach (ICD-10-PCS; principal; 2017-10-02 08:21)
DX: C48.1 Malignant neoplasm of specified parts of peritoneum (principal); C78.6 Secondary malignant neoplasm of retroperitoneum and peritoneum; R18.8 Other ascites; C78.5 Secondary malignant neoplasm of large intestine and rectum; C78.7 Secondary malignant neoplasm of liver and intrahepatic bile duct; I95.9 Hypotension, unspecified; C79.89 Secondary malignant neoplasm of other specified sites; N99.72 Accidental puncture and laceration of a genitourinary system organ or structure during other procedure; Z92.21 Personal history of antineoplastic chemotherapy; N73.6 Female pelvic peritoneal adhesions (postinfective)
CPT/HCPCS: 80048; 85025; 86850; 86900; 86901; 88300; 88305; 88307; 88329; 94150; J0131; J0690; J1100; J1644; J1885; J2175; J2250; J2270; J2405; J2710; J3010; J3480; J7120